=== PATIENT | female | born 1965 | race Caucasian/White ===

== ENCOUNTER → 2022-03-21 15:56 | Outpatient (CLI) | payer BC, SELFPAY ==
--- NOTE | ~2022-03-21 | XR_ITS ---
EXAMINATION: XR chest 2V DATE: 03/21/2022 16:12 INDICATION: Dyspnea. TECHNIQUE: Frontal and lateral views of the chest were obtained. COMPARISON: None. FINDINGS: There is mild scarring at the lung apices. No pleural effusion or pneumothorax. The heart s ize is normal. IMPRESSION: 1. Mild scarring at the lung apices. Reviewed, dictated and finalized at location A. 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
== END ==
PROVIDERS: PCP Nurse Practitioner Family; Visit Provider Nurse Practitioner Family
DX: R06.09 Other forms of dyspnea (principal)
CPT/HCPCS: 71046

== ENCOUNTER 2023-09-02 10:52 | Outpatient (CLI) | payer BC, SELFPAY ==
--- NOTE | ~2023-09-02 | MM_ITS ---
EXAMINATION: MM screening rosa BI w jesus HISTORY: Screening mammogram TECHNIQUE: Craniocaudal and mediolateral oblique 3-D tomosynthesis images were obtained and synthetic 2-D images were generated. CAD analysis was submitted and interpreted. COMPARISON: 06/05/2017 BREAST PARENCHYMAL COMPOSITION:Dense: The breasts are heterogeneously dense, which may obscure small masses. FINDINGS: No suspicious mass, calcification, or architectural distortion are identified in either kina ast to suggest malignancy. There has been no suspicious interval change. IMPRESSION: No mammographic evidence of malignancy. Recommend routine screening mammography in one year. BI-RADS Category 1: Negative Reviewed, dictated and finalized at location .
== END 2023-09-02 10:53 ==
LOC: MICIMG 10:52
PROVIDERS: PCP Obstetrics & Gynecology; Visit Provider Obstetrics & Gynecology
DX: Z12.31 Encounter for screening mammogram for malignant neoplasm of breast (principal)
CPT/HCPCS: 77063; 77067

== ENCOUNTER 2023-10-16 19:02 | Emergency (ER) | payer BC, SELFPAY ==
[2023-10-16 19:26] VITALS: BP 135/74; PULSE 121; RESP 20; TEMP 36.7; O2SAT 99
[2023-10-16 20:44] VITALS: O2SAT 99
[2023-10-16 20:45] VITALS: BP 128/78; PULSE 99; RESP 111; O2SAT 99
[2023-10-16 21:31] LABS: Influenza A QL RT-PCR Negative (Negative); Influenza B QL RT-PCR Negative (Negative); RSV RNA, RT-PCR Negative (Negative); SARS-CoV-2 RNA PCR Positive (Negative)
--- NOTE | 2023-10-16 22:25 | ED.URI ---
HPI - URI/Sore Throat General Chief Complaint: Upper Respiratory Infection Stated Complaint: COVID+ TEST FEELS BAD Time Seen by Provider: 10/16/23 20:33 Source: patient Mode of arrival: ambulatory Limitations: no limitations History of Present Illness HPI Narrative: this is a 58-year-old female who presents today with positive COVID test at home and COVID symptoms. Reports cough, congestion, sore throat and headache for the past 3 days. She works at a chemical plant and has been told she has scarring in the lungs in the past. She does not smoke. Denies any immuno compromising condition. Denies shortness of breath, chest pain, abdominal pain, nausea, vomiting, fevers, chills. Related Data Allergies Allergy/AdvReac Type Severity Reaction Status Date / Time No Known Allergies Allergy Verified 10/16/23 19:25 Review of Systems Review of Systems: All systems as dictated in HPI PMFSH Past Medical History Medical History Screening mammogram, encounter for Surgical History Surgical History History of orthopedic surgery right arm surgery pinched nerve Family History Family History (Updated 01/16/23 @ 09:19 by CHARLY Carrillo) Mother Diabetes mellitus Father Hypertension Cerebrovascular accident Other Breast cancer maternal aunt Sibling Breast cancer sister Heart disease sister Social History Social History (Updated 01/16/23 @ 09:20 by CHARLY Carrillo) Smoking status: Never smoker Second hand tobacco smoke exposure: Yes Alcohol intake: never Substance use: never Substance use type: does not use Lack of Transportation: No Lack of Food: Never True Current Housing: I Have Housing Concerned About Future Housing: No Difficulty Paying Gas/Electric Bills: No Difficulty Paying for Meds: No Currently Unemployed: No Education: High School Diploma/GED Difficulty w/ Childcare or Family Care: No Living arrangements: other Additional living arrangements comments: spouse Occupation/Education: occupation Additional occupation/education comments: filler at [employer] Gender identity (if verbalized by the patient): Female Sexual Orientation (if Verbalized by the Patient): Straight or Heterosexual Exam Narrative: GENERAL: Well-appearing, well-nourished, and in no acute distress. HEAD: Normocephalic, atraumatic. EYES: PERRLA and EOMI. ENT: Nares clear, no rhinorrhea or epistaxis. Mucous membranes moist. Oropharynx without tonsillar hypertrophy exudate or other lesions. NECK: Supple. No adenopathy or masses. CHEST: No respiratory distress. Clear to auscultation. No wheezes rales or rhonchi HEART: Regular rate and rhythm. No murmur heard. Normal peripheral pulses. ABDOMEN: Soft, nontender, nondistended, normal active bowel sounds. MSK: Normal range of motion. No edema. SKIN: Warm, dry, no rash. NEURO: Alert and oriented x4. No focal deficits. PSYCH: Normal mood and affect. Course Vital Signs Vital signs: Vital Signs Temperature 98.1 F 10/16/23 19:26 Pulse Rate 121 H 10/16/23 19:26 Respiratory Rate 20 10/16/23 19:26 Blood Pressure 135/74 10/16/23 19:26 Pulse Oximetry 99 10/16/23 19:26 Oxygen Delivery Room Air 10/16/23 19:26 Temperature 98.1 F 10/16/23 19:26 Pulse Rate 98 10/16/23 22:56 Respiratory Rate 18 10/16/23 22:56 Blood Pressure 127/76 10/16/23 22:56 Pulse Oximetry 99 10/16/23 22:56 Oxygen Delivery Room Air 10/16/23 20:44 MDM - URI/Sore Throat MDM Narrative Medical decision making narrative: This 58 yo F patient presents with symptoms suspicious for likely viral upper respiratory infection. Differential includes bacterial pneumonia, sinusitis, allergic rhinitis, COVID. COVID (+) at home and COVID (+) here. I considered, but think unlikely, dangerous caus
[2023-10-16 22:56] VITALS: BP 127/76; PULSE 98; RESP 18; O2SAT 99
== END 2023-10-16 22:57 | disposition home or self-care (01) ==
PROVIDERS: Emergency Provider Physician Assistant; PCP Nurse Practitioner Family
DX: U07.1 COVID-19 (principal); J06.9 Acute upper respiratory infection, unspecified
CPT/HCPCS: 87637; 99283